=== PATIENT | female | born 1945 | race Caucasian/White ===

== ENCOUNTER → 2021-03-03 09:35 | Outpatient (CLI) | payer MEDICARE, SELFPAY ==
[2021-03-03 12:47] LABS: Erythrocyte Sedimentation Rate 5 mm/hr (0-30)
[2021-03-03 12:50] LABS: Absolute Lymphocyte Count 1.86 X10^3/uL (0.83-4.51); Absolute Neutrophil Count 2.5 X10^3/uL (2.0-7.7); Basophil# 0.06 X10^3/uL; Basophil% 1.1 % (0-1); Eosinophil# 0.36 X10^3/uL; Eosinophils% 6.8 % (0-5); Hematocrit 43.4 % (37-47); Hemoglobin 13.8 g/dL (12.0-15.0); Lymphocyte # 1.86 X10^3/ul (0.83-4.51); Lymphocyte % 34.9 % (19-41); Mean Corp Hgb Conc 31.8 g/dL (32-36); Mean Corpuscular Hgb 31.6 pg (27.0-32.0); Mean Corpuscular Volume 99.3 fL (81-99); Mean Platelet Vol. 11.1 fl (6.2-12.0); Monocyte# 0.55 X10^3/uL; Monocyte% 10.3 % (0-10); NRBC Flagged by Analyzer 0 % (0-5); Neutrophil # 2.49 X10^3/uL (2.7-7.7); Neutrophil % 46.7 % (47-70); Platelet Count 229 K/mm3 (150-450); RBC Distribution Width CV 12.6 % (11.6-14.6); RBC Distribution Width SD 46.5 fl (35.1-43.9); Red Blood Count 4.37 M/mm3 (4.2-5.4); White Blood Count 5.3 K/mm3 (4.4-11.0)
[2021-03-03 13:03] LABS: CRP 4.79 mg/L (0.0-3.0)
== END ==
PROVIDERS: PCP Family Medicine; Referring Provider Ophthalmology; Visit Provider Ophthalmology
DX: R51.9 Headache, unspecified (principal)
CPT/HCPCS: 36415; 85025; 85652; 86140

== ENCOUNTER → 2021-10-29 12:19 | Outpatient (CLI) | payer MEDICARE, SELFPAY ==
--- NOTE | 2021-10-29 12:34 | MRI_ITS ---
HISTORY: MID BACK PAIN. TECHNIQUE: Multiplanar and multisequence MR images of the thoracic spine. IV Contrast dosage and agent: None. # of images incl. paperwork: 161. COMPARISON: None FINDINGS: VERTEBRAE: Mild loss of height of the T6 vertebral body with vertebroplasty noted. Chronic mild T9 compression fracture. Degenerative bone marrow endplate changes at multiple levels, particularly T12-L1. ALIGNMENT: No anterior or posterior subluxation in the thoracic spine. 3 mm retrolisthesis of L1-2. CORD: Morphology and signal within normal limits. SOFT TISSUES: No paraspinal fluid collections. INTERVERTEBRAL DISCS: Mild disc bulges of T5-6 and T6-7 without significant central canal stenosis or foraminal narrowing. Mild disc bulge with facet arthropathy at T12-L1 without significant central canal stenosis or foraminal narrowing. MRI/Spine Thoracic (Routine) IMPRESSION: Chronic T6 compression fracture with vertebroplasty. Chronic mild T9 compression fracture. Mild degenerative disc disease without significant spinal canal stenosis. at 1452 Reported and signed by: Olive Stockton MD Electronically Signed: Olive Stockton MD at 14:51 EST Tel , Service support ,
== END ==
PROVIDERS: PCP Family Medicine; Visit Provider Anesthesiology Pain Medicine
DX: M80.08XA Age-related osteoporosis with current pathological fracture, vertebra(e), initial encounter for fracture (principal)
CPT/HCPCS: 72146

== ENCOUNTER → 2021-11-11 10:02 | Outpatient (CLI) | payer MEDICARE, SELFPAY ==
--- NOTE | 2021-11-11 10:06 | RAD_ITS ---
INDICATION: COMPRESSION FRACTURE EXAMINATION/TECHNIQUE: X-RAY - XR Spine Thoracic 2 Views COMPARISON: 10/29/2021. FINDINGS: VERTEBRAE: Preserved vertebral body height. No fracture. No spondylolisthesis. Mild kyphosis of the thoracic spine visualized with apex along the posterior aspect of the T9 vertebral body. Mild atherosclerosis of the thoracolumbar junction visualized with apex along the right lateral aspect of the T12 vertebral body. Vertebral augmentation visualized within the T6 and T9 thoracic vertebral bodies. Decreased intervertebral disc height visualized most prominent at T12-L1 and L1-L2. Slightly decreased height of the L2 vertebral body is seen. RAD/Thoracic Spine 2 Views IMPRESSION: Multilevel degenerative changes of the thoracic spine seen. Increased density of the superior endplate of the T12 vertebral body. Decreased intervertebral disc height visualized at T12-L1. Suggestion of slight decreased height of the L2 vertebral body would recommend clinical correlation. Electronically Signed: Thai White MD at 15:15 EST Tel , Service support ,
== END ==
PROVIDERS: PCP Family Medicine; Referring Provider Anesthesiology Pain Medicine; Visit Provider Anesthesiology Pain Medicine
DX: M47.814 Spondylosis without myelopathy or radiculopathy, thoracic region (principal)
CPT/HCPCS: 72070

== ENCOUNTER → 2023-03-03 | Outpatient (CLI) | payer MEDICARE, SELFPAY ==
--- NOTE | 2023-03-03 18:05 | RAD_ITS ---
INDICATION: PAIN EXAMINATION/TECHNIQUE: X-RAY - XR Spine Lumbar 2 or 3 Views COMPARISON: No comparison. FINDINGS: 3 views of the lumbar spine. BONES: Mild L4 on L5 anterolisthesis of approximately 4 mm. Otherwise, anatomic alignment without obvious acute fracture. No concerning bony lesion or abnormal sclerosis to suggest lesion. Lower thoracic vertebroplasty cement. DISCS/JOINTS: Moderate to severe multilevel degenerative disc disease. SOFT TISSUES: Dense atherosclerotic vascular calcifications. RAD/Lumbar Spine 2 or 3 Views IMPRESSION: Lumbar spine degenerative change with mild L4 on L5 anterolisthesis of approximately 4 mm. If there is persistent clinical concern for spine fracture and this is a trauma patient, recommend dedicated lumbar spine CT. Electronically Signed: Kehinde Dudley MD at 0:39 EDT ,
== END | disposition home or self-care (01) ==
LOC: WPOUT 17:57
PROVIDERS: PCP Family Medicine; Visit Provider Anesthesiology Pain Medicine
DX: M80.08XA Age-related osteoporosis with current pathological fracture, vertebra(e), initial encounter for fracture (principal)
CPT/HCPCS: 72100